=== PATIENT | male | born 1995 | race Caucasian/White ===

== ENCOUNTER 2018-05-24 18:24 | Emergency (ER) | payer BC, OTHER ==
[2018-05-24 18:31] VITALS: PULSE 79; TEMP 98.3; BMI 28.6
[2018-05-24] MEDS ORDERED: IBUPROFEN 400 MG TABLET (FP) PO ONE ×2 (18:55→19:00)
--- NOTE | 2018-05-24 19:09 | PDOC ---
History of Present Illness - General Chief Complaint: Pain Stated Complaint: PAIN Time Seen by Provider: 05/24/18 18:48 History Source: Patient Exam Limitations: No Limitations - History of Present Illness Initial Comments: 05/24/18 19:04 23 yr male no PMHX presents with 4 days pain to under left breast radiates too his left side neck and shoulder worse with movement and when lying on his side at night. 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 Pt denies injury no smoking no drugs , no recent travel. Pt denies any over the counter or prescription meds. Pt uses gym often lifts weights. 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 Timing/Duration: other (4 days) Severity: mild Associated Symptoms: denies: cough, diaphoresis, fever/chills, headaches, nausea /vomiting, shortness of breath Past History - Past Medical History Allergies/Adverse Reactions: Allergies Allergy/AdvReac Type Severity Reaction Status Date / Time No Known Drug Allergies Allergy Verified 05/24/18 18:31 Home Medications: Ambulatory Orders Cyclobenzaprine HCl [Flexeril -] 10 mg PO TID #21 tablet 05/24/18 Ibuprofen 800 mg PO TID #20 tablet 05/24/18 Anemia: No Asthma: No Cancer: No Cardiac Disorders: No CVA: No COPD: No CHF: No Dementia: No Diabetes: No GI Disorders: No Disorders: No HTN: No Hypercholesterolemia: No Liver Disease: No Seizures: No Thyroid Disease: No - Surgical History Appendectomy: Yes - Family Disease History Comment:: 05/24/18 19:06 denies any sudden cardiac in young family members - Suicide/Smoking/Psychosocial Hx Smoking History: Never smoked Hx Alcohol Use: No Drug/Substance Use Hx: No Substance Use Type: None Review of Systems - Review of Systems Able to Perform ROS?: Yes Is the patient limited Belarusian proficient: No Constitutional: No: Symptoms Reported HEENTM: No: Symptoms Reported Respiratory: No: Symptoms reported Cardiac (ROS): Yes: Symptoms Reported, See HPI *Physical Exam - Vital Signs Last Vital Signs Temp Pulse Resp BP Pulse Ox 98.3 F 79 18 141/52 98 05/24/18 18:27 05/24/18 18:27 05/24/18 18:27 05/24/18 18:27 09/09/18 18:27 - Physical Exam General Appearance: Yes: Nourished, Appropriately Dressed HEENT: positive: EOMI, ESTHER, TMs Normal, Pharynx Normal Neck: positive: Supple, Tender lateral (left lateral neck muscle ttp ). negative: Lymphadenopathy (R), Lymphadenopathy (L), Rigidity, Tender midline Respiratory/Chest: positive: Chest Tender (ttp under left breast , no rashes ), Lungs Clear, Normal Breath Sounds Cardiovascular: positive: Regular Rhythm, Regular Rate Gastrointestinal/Abdominal: positive: Normal Bowel Sounds, Soft Lymphatic: negative: Adenopathy Musculoskeletal: positive: Normal Inspection Extremity: positive: Normal Capillary Refill, Normal Inspection, Normal Range of Motion Integumentary: positive: Normal Color, Dry, Warm Neurologic: positive: Fully Oriented, Alert, Normal Mood/Affect, Normal Response , Motor Strength 5/5 Heart Score/ECG Review - History History: Slightly suspicious - Age Age: </= 45 - Risk Factors Risk Factors Heart Score: No Hx Hypercholesterolemia, No Hx Hypertension, No Hx Diabetes, No Smoking History, No Positive family hx of cardiac disease, No Hx Obesity - ECG Intrepretation Rhythm: Regular Rhythm - [place]: Normal - ECG Impressions Normal ECG: Yes ED Treatment Course - RADIOLOGY Radiology Studies Ordered: Category Date Time Status CHEST PA & LAT [RAD] Stat Radiology 05/24/18 18:55 Ordered - Medications Given in the ED: ED Medications Discontinued Medications Generic Name Dose Route Start Last Admin Trade Name Freq PRN Reason Stop Dose Admin Ibuprofen 800 mg 05/24/18 18:55 05/24/18 19:00 Motrin - PO 05/24/18 18:56 800 mg ONCE ONE Administration Medical Decision Making - Medical Decision Making 05/24/18 19:07 cc: left sided chest pain 4 days under left breast worse with movement and to touch, worse with sleeping and pain radiates to the elft side of neck and shoulder, pain with sleeping on left arm denies injury vitals stable no cardiac risk factors, no recent illness, no surgery pain is constant worse with pushing the carts at work, reproducable with touch afebrile stable vitals EKG done in triage NSR no T wave abnormality will give ibuprofen 800mg pt refused toradol CXR preliminary is negative will dc home strict follow up tomorrow with PMD 05/24/18 19:19 05/24/18 19:31 *DC/Admit/Observation/Transfer Diagnosis at time of Disposition: Musculoskeletal chest pain - Discharge Dispostion Disposition: HOME Condition at time of disposition: Good - Prescriptions Prescriptions: Cyclobenzaprine HCl [Flexeril -] 10 mg PO TID #21 tablet Ibuprofen 800 mg PO TID #20 tablet - Referrals Referrals: Orlando Ovalles MD [Primary Care Provider] - - Patient Instructions Additional Instructions: avoid heavy lifting until your symptoms improve take ibuprofen 800mg every 8hrs for pain take flexeril for any muscle spasm (Do not drink alcohol, drive or operate machinery) apply warm compresses to the area of pain on the neck every 2hrs for 20 minutes please follow with your primary care doctor tomorrow for follow up the preliminary reading on the chest xray is negative Return to ER for any worsening symptoms - Post Discharge Activity Forms/Work/School Notes: Back to Work Progress Note - Progress Note Progress Note: called patient today for follow up courtesy call. Pt is feeling better has no symptoms, states feels better after taking muscle relaxant. Pt has apt today with his PMD .
[2018-05-24 19:44] VITALS: BP 132/67
--- NOTE | 2018-05-25 10:26 | EKG ---
Test Reason : Blood Pressure : / mmHG Vent. Rate : 069 BPM Atrial Rate : 069 BPM P-R Int : 154 ms QRS Dur : 100 ms QT Int : 412 ms P-R-T Axes : 055 057 029 degrees QTc Int : 441 ms NORMAL SINUS RHYTHM NORMAL ECG NO PREVIOUS ECGS AVAILABLE Confirmed by LISA DAVID MD ([id number]) on 05/25/2018 10:26:16 AM Referred By: Confirmed By:LISA DAVID MD
== END 2018-05-24 20:21 | disposition home or self-care (01) ==
LOC: JER 18:24 → JERFT 18:24
DX: R07.89 Other chest pain (principal); X50.0XXA Overexertion from strenuous movement or load, initial encounter; Y93.89 Activity, other specified; Y92.59 Other trade areas as the place of occurrence of the external cause; Y99.0 Civilian activity done for income or pay
CPT/HCPCS: 71046-TC-FY; 93005; 93010; 99281-25

== ENCOUNTER 2019-09-08 13:22 | Emergency (ER) | payer BC ==
--- NOTE | 2019-09-08 13:35 | PDOC ---
History of Present Illness - General Chief Complaint: Headache Stated Complaint: HEADACHE Time Seen by Provider: 09/08/19 13:35 History Source: Patient Exam Limitations: No Limitations - History of Present Illness Initial Comments: 09/08/19 13:57 24y previously healthy M presenting w posterior headache and L leg parasthesias. 1 week ago woke up with constant posterior headache, L leg parasthesias, weakness, mild L leg ataxia. 2d ago went to Dr Orlando Ovalles's office, negative blood workup, referred to ED to get a brain/c-spine MRI to r/o disc herniation. Tried flexeril, ibuprofen, gabapentin without relief. Denies fever, vision change, SOB, chest/AB pain, urinary/bowel mvmt changes. Sometimes lifts heavy objects working at [employer]. Denies trauma. Past History - Past Medical History Allergies/Adverse Reactions: Allergies Allergy/AdvReac Type Severity Reaction Status Date / Time No Known Drug Allergies Allergy Verified 09/08/19 13:26 Home Medications: Ambulatory Orders Cyclobenzaprine HCl [Flexeril -] 10 mg PO TID #21 tablet 05/24/18 Ibuprofen 800 mg PO TID #20 tablet 05/24/18 Gabapentin 100 mg PO DAILY #10 capsule 09/08/19 Anemia: No Asthma: No Cancer: No Cardiac Disorders: No CVA: No COPD: No CHF: No Dementia: No Diabetes: No GI Disorders: No Disorders: No HTN: No Hypercholesterolemia: No Liver Disease: No Seizures: No Thyroid Disease: No - Surgical History Appendectomy: Yes - Psycho Social/Smoking Cessation Hx Smoking History: Never smoked Hx Alcohol Use: No Drug/Substance Use Hx: No Substance Use Type: None Review of Systems - Review of Systems Constitutional: No: Chills, Fever HEENTM: No: Eye Pain, Nose Pain, Throat Pain Respiratory: No: Cough, Shortness of Breath Cardiac (ROS): No: Chest Pain, Palpitations, Syncope ABD/GI: No: Abdominal Distended, Constipated, Diarrhea, Nausea, Vomiting : No: Burning, Dysuria, Discharge, Flank Pain, Hematuria Musculoskeletal: No: Back Pain, Joint Pain Integumentary: No: Bruising, Flushing, Lesions Neurological: Yes: Headache, Paresthesia. No: Seizure, Tingling Psychiatric: No: Anxiety, Depression, Stressors Endocrine: No: Excessive Sweating, Flushing, Intolerance to Cold, Intolerance to Heat Hematologic/Lymphatic: No: Anemia, Blood Clots *Physical Exam - Physical Exam General Appearance: Yes: Nourished, Appropriately Dressed. No: Apparent Distress HEENT: positive: EOMI, ESTHER, Normal Voice, Hearing Grossly Normal. negative: Scleral Icterus (R), Scleral Icterus (L), Nasal Congestion, Rhinorrhea Neck: positive: Supple. negative: Tender, Rigid, Decreased range of motion ( full) Respiratory/Chest: positive: Lungs Clear, Normal Breath Sounds. negative: Chest Tender, Respiratory Distress, Crackles, Rales, Rhonchi, Stridor, Wheezing Cardiovascular: positive: Regular Rhythm, Regular Rate, S1, S2. negative: Edema , Murmur Musculoskeletal: positive: Normal Inspection. negative: CVA Tenderness (R), CVA Tenderness (L), Vertebral Tenderness Integumentary: positive: Normal Color. 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 Slight L leg limp when walking. No balance deficits). negative: Confused, Disoriented ED Treatment Course - LABORATORY CBC & Chemistry Diagram: 09/08/19 14:12 09/08/19 14:12 Medical Decision Making - Medical Decision Making 09/08/19 13:57 24y previously healthy M presenting w posterior headache and L leg parasthesias d/t C5 radiculopathy diagnosed by Dr Serrano neuro. Low concern for cauda equina (retained bowel/bladder function) vs disc herniation (neg straight leg raise) Neuro exam significant for L leg paraesthesias and mild L leg ataxia. CBC CMP normal. Head CT no acute infarct/bleed/mass. Given tylenol, reglan, 1L NS. Dr Serrano consulted, advised will see pt in clinic tmrw for MRI c-spine, gabapentin daily. DC home Discharge - Discharge Information Problems reviewed: Yes Clinical Impression/Diagnosis: Cervical radiculopathy at C5 Condition: Good Disposition: HOME - Admission No - Additional Discharge Information Prescriptions: Gabapentin 100 mg PO DAILY #10 capsule - Follow up/Referral Referrals: Orlando Ovalles MD [Primary Care Provider] - Radha Serrano MD [Staff Physician] - - Patient Discharge Instructions Patient Printed Discharge Instructions: DI for Cervical Radiculopathy Additional Instructions: You were seen for headache and leg discomfort. Your workup did not show anything concerning. You were given pain medication. Please see the neurologist Dr Serrano in clinic tomorrow. Take the prescribed Gabapentin at night as directed. Come back if you cannot urinate or pass bowel movement, walk, - Post Discharge Activity
[2019-09-08 13:51] VITALS: TEMP 98.2; BMI 25.7
[2019-09-08] MEDS: ACETAMINOPHEN 1000 MG/100 ML VIAL (NON FORMULARY) IVPB ONE ×2 (13:54→14:12)
[2019-09-08] MEDS: GABAPENTIN 100 MG CAPSULE (FP) PO ONE ×2 (13:54→14:13)
[2019-09-08] MEDS ORDERED: SODIUM CHLORIDE 0.9% 500 ML INFUS.BAG IV ONE (13:55)
[2019-09-08] MEDS ORDERED: ACETAMINOPHEN 500 MG TABLET (FP) PO ONE (13:55)
[2019-09-08] MEDS ORDERED: METOCLOPRAMIDE HCL INJECTION 10 MG/2 ML VIAL IVPB ONE (13:55)
[2019-09-08] MEDS ORDERED: ACETAMINOPHEN 1000 MG/100 ML VIAL (NON FORMULARY) IVPB ONE (13:56)
[2019-09-08] MEDS ORDERED: ACETAMINOPHEN INJECTION 100 ML IVPB ONE (14:00)
[2019-09-08 14:20] LABS: BASO % 1.2 % (0-2.0); EOS % 4.4 % (0-4.5); HEMATOCRIT 44.5 % (35.4-49); MCH 28.5 pg (25.7-33.7); MCHC 33.7 g/dl (32.0-35.9); MEAN CELL VOLUME 84.7 fl (80-96); MEAN PLT VOLUME 7.4 fl (7.5-11.1); MONO % 5.3 % (3.8-10.2); NEUT % 53.1 % (42.8-82.8); PLATELET COUNT 213 K/MM3 (134-434); RBC 5.25 M/mm3 (4.00-5.60); RDW 14.1 % (11.9-15.9); WHITE BLOOD COUNT 4.9 K/mm3 (4.0-10.0)
[2019-09-08 14:41] LABS: INR 1.05 (0.83-1.09); PROTHROMBIN TIME (PATIENT) 12.4 SEC (9.7-13.0)
[2019-09-08 14:42] LABS: ALBUMIN 4.2 g/dl (3.4-5.0); BILIRUBIN,TOTAL 0.5 mg/dL (0.2-1); BLOOD UREA NITROGEN 13.8 mg/dL (7-18); CALCIUM 9.2 mg/dL (8.5-10.1); POTASSIUM 3.9 mmol/L (3.5-5.1); TOT PROT 7.3 g/dl (6.4-8.2)
--- NOTE | 2019-09-08 14:46 | PDOC ---
Documentation entered by Kirti Jama SCRIBE, acting as scribe for Kevin Chavez MD. Kevin Chavez MD: This documentation has been prepared by the porscheibeWiley Maria, SCRIBE, under my direction and personally reviewed by me in its entirety. I confirm that the documentation accurately reflects all work, treatment, procedures, and medical decision making performed by me. Attending Attestation - Resident Resident Name: Kev Cuadra - ED Attending Attestation I have performed the following: I have examined & evaluated the patient, The case was reviewed & discussed with the resident, I agree w/resident's findings & plan, Exceptions are as noted - HPI HPI: 09/08/19 14:14 Patient is a 24 year old male with no significant PMH who presents to the ED with a posterior headache and L leg paresthesias. Pt states his headache started about a week ago. He reports mild R sided posterior pain that is constant. Denies neck pain. Pt denies N/V. States that he takes motrin for his headache, which helps temporarily. Pt denies thunderclap, denies worse headache of life. Pt also reports L leg numbness that started after the headache. He states that he feels like his left leg is asleep. The numbness radiates from his L foot all the way up his L abdomen. Pt denies any noticeable weakness but reports that he has been walking with a limp and finds himself stumbling at times. He denies any recent fevers, chills, headache or dizziness. He denies any recent nausea, vomit, diarrhea or constipation. He denies any recent chest pain or shortness of breath. He denies any recent dysuria, frequency, urgency or hematuria. 09/08/19 14:46 - Physicial Exam PE: 09/08/19 13:42 "GENERAL: Awake, alert, and fully oriented, in no acute distress. HEAD: No signs of trauma EYES: PERRLA, EOMI, sclera anicteric, conjunctiva clear ENT: Auricles normal inspection, hearing grossly normal, nares patent, oropharynx clear without exudates. Moist mucosa NECK: Nontender, no stepoffs, Normal ROM, supple, no lymphadenopathy, JVD, or masses LUNGS: Breath sounds equal, clear to auscultation bilaterally. No wheezes, and no crackles HEART: Regular rate and rhythm, normal S1 and S2, no murmurs, rubs or gallops ABDOMEN: Soft, nontender, normoactive bowel sounds. No guarding, no rebound. No masses EXTREMITIES: Normal range of motion, no edema. No clubbing or cyanosis. No cords, erythema, or tenderness NEUROLOGICAL: + diminished sensation throughout LLE and L abdomen, Cranial nerves II through XII intact. 5/5 strength all extremities, Normal speech, normal cerebellar function SKIN: Warm, Dry, normal turgor, no rashes or lesions noted. - Medical Decision Making 09/08/19 14:50 24 M with posterior headache and LLE numbness, with abnormal gait on exam. - Labs - CT head - Neuro c/s 09/08/19 16:16 Labs wnl CTH unremarkable Pt evaluated by Dr. Serrano, who believes this is a C5 radiculopathy. Plan to obtain MRI as outpt, he will see pt in his office tomorrow. Pt is well appearing, with normal vitals. Clinically stable for DC at this time. I discussed the physical exam findings, ancillary test results and final diagnoses with the patient. I answered all of the patient's questions. The patient was satisfied with the care received and felt comfortable with the discharge plan and treatment plan. The patient agrees to follow up with the primary care physician within 24-72 hours.
[2019-09-08 16:54] VITALS: BP 120/87; PULSE 80
--- NOTE | 2019-09-08 17:22 | CON.NEURO ---
Consult Consult Specialty:: Maggie Referred by:: ER - History of Present Illness History of Present Illness: 24-year-old right-handed man with essentially normal medical history presents to thehospital emergency room at [facility] with chief complaint of headache throbbing pain and neck pain and difficulty with equilibrium. Patient denies any recent travel no history of head trauma no history of weight loss or weight gain or difficulty swallowing in the emergency room patient was stepwise was hemodynamically stable patient was noted with questionable decreased sensation on sensory exam with the left arm and left leg. 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 - History Source History Provided By: Patient Limitations to Obtaining History: No Limitations - Alcohol/Substance Use Hx Alcohol Use: No - Smoking History Smoking history: Never smoked Have you smoked in the past 12 months: No Home Medications - Allergies Allergies/Adverse Reactions: Allergies Allergy/AdvReac Type Severity Reaction Status Date / Time No Known Drug Allergies Allergy Verified 09/08/19 13:26 - Home Medications Home Medications: Ambulatory Orders Cyclobenzaprine HCl [Flexeril -] 10 mg PO TID #21 tablet 05/24/18 Ibuprofen 800 mg PO TID #20 tablet 05/24/18 Gabapentin 100 mg PO DAILY #10 capsule 09/08/19 Family Medical History Family History: Unremarkable Review of Systems - Review of Systems Constitutional: reports: No Symptoms Eyes: reports: No Symptoms HENT: reports: No Symptoms Physical Exam-Neuro Vital Signs: Vital Signs Temperature 98.2 F 09/08/19 13:39 Pulse Rate 80 09/08/19 16:25 Respiratory Rate 14 09/08/19 16:25 Blood Pressure 120/87 09/08/19 16:25 O2 Sat by Pulse Oximetry (%) 98 09/08/19 13:39 Constitutional: Yes: Well Nourished Neck: Yes: WNL Cardiovascular: Yes: WNL Labs: CBC, BMP 09/08/19 14:12 09/08/19 14:12 INR, PTT INR 1.05 (0.83-1.09) 09/08/19 14:12 - Neuro Exam Level Of Consciousness: Yes: Oriented to Person, Oriented to Place, Oriented to Time Eyes: Yes: PERRLA Speech: WNL Dominant Hand: Right Cranial Nerves II-XII Intact: Yes Gag: Present DTR's: 1+ Left Bicep, 1+ Right Bicep, 1+ Left Brachioradialis, 1+ Right Brachioradialis Response to light touch: Normal Response to pain prick: Normal Response to temperature: Normal Response to vibration: Normal Motor Strength: 3/5: Left Arm, Right Arm, Left Leg, Right Leg Gait: Deferred Imaging - Results Cat Scan: Image Reviewed Problem List - Problems (1) Cervical radiculopathy at C5 Assessment/Plan: o evidence of myelopathy no evidence of demyelinating disease no evidence of vertebral dissection 1. Neurologically can go home. 2. Neurontin 100 mg by mouth daily at bedtime. 3. MRI of the cervical spine as an outpatient. Code(s): M54.12 - RADICULOPATHY, CERVICAL REGION
--- NOTE | 2019-09-09 05:06 | EKG ---
Test Reason : Blood Pressure : / mmHG Vent. Rate : 071 BPM Atrial Rate : 071 BPM P-R Int : 156 ms QRS Dur : 094 ms QT Int : 386 ms P-R-T Axes : 057 052 034 degrees QTc Int : 419 ms POOR DATA QUALITY, INTERPRETATION MAY BE ADVERSELY AFFECTED NORMAL SINUS RHYTHM NORMAL ECG WHEN COMPARED WITH ECG OF 24-MAY-2018 18:51, NO SIGNIFICANT CHANGE WAS FOUND Confirmed by YURIY MATHIS, JUVE ([id number]) on 09/09/2019 5:06:30 AM Referred By: Confirmed By:JUVE YAN MD
[2019-09-09] MEDS ORDERED: CYCLOBENZAPRINE HCL 5 MG TABLET PO ONE (13:49)
== END 2019-09-08 16:30 | disposition home or self-care (01) ==
LOC: JER 13:22
PROC: 3E033NZ Introduction of Analgesics, Hypnotics, Sedatives into Peripheral Vein, Percutaneous Approach (ICD-10-PCS; principal; 2019-09-08)
PROC: 3E033GC Introduction of Other Therapeutic Substance into Peripheral Vein, Percutaneous Approach (ICD-10-PCS; 2019-09-08)
DX: M54.12 Radiculopathy, cervical region (principal)
CPT/HCPCS: 36415; 70450-TC; 80053; 85025; 85610; 86850; 86900; 86901; 93005; 93010; 99282-25; J0131

== ENCOUNTER 2019-09-21 12:55 | Inpatient (IN) | payer OTHER, BC ==
[2019-09-21 13:04] VITALS: BMI 30.2
[2019-09-21] MEDS ORDERED: DEXAMETHASONE SOD PHOSPHATE 10 MG/1 ML VIAL IVPUSH ONE (13:16)
[2019-09-21] MEDS ORDERED: DEXAMETHASONE SOD PHOSPHATE 10 MG/1 ML VIAL ONE (13:43)
[2019-09-21] MEDS ORDERED: oxyCODONE HCL 5 MG TABLET PO PRN (13:53)
[2019-09-21] MEDS ORDERED: MORPHINE SULFATE 2 MG/ML VIAL IVPUSH PRN (13:53)
[2019-09-21] MEDS ORDERED: ACETAMINOPHEN 325 MG TABLET (FP) PO PRN ×2 (13:53→19:30)
[2019-09-21 14:18] LABS: BASO % 0.7 % (0-2.0); EOS % 3.6 % (0-4.5); HEMATOCRIT 43.2 % (35.4-49); HEMOGLOBIN 14.6 GM/dL (11.7-16.9); LYMPH % 32.8 % (8-40); MCH 28.3 pg (25.7-33.7); MCHC 33.8 g/dl (32.0-35.9); MEAN CELL VOLUME 83.5 fl (80-96); MEAN PLT VOLUME 7.8 fl (7.5-11.1); MONO % 6.7 % (3.8-10.2); NEUT % 56.2 % (42.8-82.8); PLATELET COUNT 212 K/MM3 (134-434); RBC 5.18 M/mm3 (4.00-5.60); RDW 14.2 % (11.9-15.9); WHITE BLOOD COUNT 5.4 K/mm3 (4.0-10.0)
[2019-09-21 14:43] LABS: ALBUMIN 4.3 g/dl (3.4-5.0); BILIRUBIN,TOTAL 0.5 mg/dL (0.2-1); BLOOD UREA NITROGEN 18.3 mg/dL (7-18); CALCIUM 9.2 mg/dL (8.5-10.1); CREATININE 0.9 mg/dL (0.55-1.3); TOT PROT 7.3 g/dl (6.4-8.2)
[2019-09-21] MEDS ORDERED: PANTOPRAZOLE 40 MG TABLET ONE (14:53)
[2019-09-21] MEDS: PANTOPRAZOLE 40 MG TABLET PO SCH (14:58)
[2019-09-21 15:05] LABS: INR 1.01 (0.83-1.09); PROTHROMBIN TIME (PATIENT) 11.9 SEC (9.7-13.0)
[2019-09-21 15:07] LABS: ACTIVATED PTT 36.3 SECONDS (25.2-36.5)
[2019-09-21] MEDS: methylPREDNISolone NA SUCC 125 MG/2 ML VIAL IVPB SCH ×2 (15:30→20:54)
--- NOTE | 2019-09-21 16:22 | PDOC ---
Documentation entered by Norbert Carrera SCRIBE, acting as scribe for Dayana Fabian MD. Dayana Fabian MD: This documentation has been prepared by the Deandre boland Daniel, SCRIBE, under my direction and personally reviewed by me in its entirety. I confirm that the documentation accurately reflects all work, treatment, procedures, and medical decision making performed by me. History of Present Illness - General Chief Complaint: Headache Stated Complaint: SENT BY PCP Time Seen by Provider: 09/21/19 13:14 History Source: Patient Exam Limitations: No Limitations - History of Present Illness Initial Comments: 09/21/19 13:27 The patient is a 24 year old male with a past medical history of new diagnosed MS here today for admission for high dose steroids. The patient reports that he has had 3 weeks of posterior headaches and unilateral numbness and was seen in the ER on 09/08/19. He had an MRI which showed MS which was later confirmed when he saw Dr. Serrano and had an MRI with contrast which showed acute MS. Pt was sent to the ED by Dr. Serrano for treatment with steroids and LP later today. PT reports resolution of numbness but reports persistent headache with no change in severity, location, or quality. Pt states he has been taking ibuprofen for the pain which provides some relief. Patient denies dizziness, current focal weakness/numbness. Denies fever, chills. Denies chest pain, shortness of breath. Denies nausea, vomiting, diarrhea, abdominal pain. Allergies: NKDA PCP: Orlando Ovalles Past History - Past Medical History Allergies/Adverse Reactions: Allergies Allergy/AdvReac Type Severity Reaction Status Date / Time No Known Drug Allergies Allergy Verified 09/21/19 13:05 Home Medications: Ambulatory Orders Ibuprofen 800 mg PO TID #20 tablet 05/24/18 Anemia: No Asthma: No Cancer: No Cardiac Disorders: No CVA: No COPD: No CHF: No Dementia: No Diabetes: No GI Disorders: No Disorders: No HTN: No Hypercholesterolemia: No Liver Disease: No Seizures: No Thyroid Disease: No - Surgical History Appendectomy: Yes - Psycho Social/Smoking Cessation Hx Smoking History: Never smoked Have you smoked in the past 12 months: No Hx Alcohol Use: No Drug/Substance Use Hx: No Substance Use Type: None Review of Systems - Review of Systems Able to Perform ROS?: Yes Comments:: 09/21/19 13:27 GENERAL/CONSTITUTIONAL: No fever or chills. No weakness. HEAD, EYES, EARS, NOSE AND THROAT: No change in vision. No ear pain or discharge. No sore throat. GASTROINTESTINAL: No nausea, vomiting, diarrhea or constipation. GENITOURINARY: No dysuria, frequency, or change in urination. CARDIOVASCULAR: No chest pain or shortness of breath. RESPIRATORY: No cough, wheezing, or hemoptysis. MUSCULOSKELETAL: No joint or muscle swelling or pain. No neck or back pain. SKIN: No rash NEUROLOGIC: +headache. +left sided numbness. No vertigo, loss of consciousness, or change in strength/sensation. ENDOCRINE: No increased thirst. No abnormal weight change. HEMATOLOGIC/LYMPHATIC: No anemia, easy bleeding, or history of blood clots. ALLERGIC/IMMUNOLOGIC: No hives or skin allergy. *Physical Exam - Vital Signs Last Vital Signs Temp Pulse Resp BP Pulse Ox 97.9 F 70 18 113/74 99 09/21/19 13:00 09/21/19 13:00 09/21/19 13:00 09/21/19 13:00 09/21/19 13:00 - Physical Exam 09/21/19 13:27 GENERAL: Awake, alert, and fully oriented, in no acute distress, very pleasant EYES: PERRLA, EOMI, sclera anicteric, conjunctiva clear ENT: Oropharynx clear without exudates. Moist mucosa NECK: Normal ROM, supple, no lymphadenopathy, JVD, or masses LUNGS: Breath sounds equal, clear to auscultation bilaterally. No wheezes, and no crackles HEART: Regular rate and rhythm, normal S1 and S2, no murmurs, rubs or gallops ABDOMEN: Soft, nontender, normoactive bowel sounds. No guarding, no rebound. No masses EXTREMITIES: Normal range of motion, no edema. No clubbing or cyanosis. No cords , erythema, or tenderness BACK: No midline spinal tenderness in cervical/thoracic/lumbar region NEUROLOGICAL: Normal speech, cranial nerves intact, negative pronator drift, 5/ 5 strength in all 4 extremities, normal sensation to light touch in all 4 extremities, normal cerebellar exam, normal gait SKIN: Warm, Dry, normal turgor, no rashes or lesions noted. ED Treatment Course - LABORATORY CBC & Chemistry Diagram: 09/21/19 13:51 09/21/19 13:51 - Medications Given in the ED: ED Medications Discontinued Medications Generic Name Dose Route Start Last Admin Trade Name Yarely PRN Reason Stop Dose Admin Dexamethasone Sodium Phosphate 10 mg 09/21/19 13:16 09/21/19 13:53 Decadron Injection - IVPUSH 09/21/19 13:17 10 mg ONCE ONE Administration Medical Decision Making - Medical Decision Making 09/21/19 16:19 24-year-old male, with new diagnosis of multiple sclerosis presents to the emergency department for admission for high-dose steroids, lumbar tap with Dr. Serrano. Case discussed with Dr. Serrano, he requests admission labs including coags and type and screen. He will evaluate the patient later today. Dr. Fournier also requests Decadron 10 mg which have also been ordered and given to the patient. Plan has been discussed with patient. Case has been discussed with TASHA Garber, patient has been accepted for admission to Dr. Ovalles's service. Case discussed in detail with admitting physician including history, physical exam and ancillary studies. Admitting physician has assumed care for the patient, will follow all pending diagnostics and will complete the evaluation and treatment. Discharge - Discharge Information Problems reviewed: Yes Clinical Impression/Diagnosis: Multiple sclerosis, Headache Condition: Stable - Follow up/Referral - Patient Discharge Instructions - Post Discharge Activity
[2019-09-21 19:16] LABS: URINE APPEARANCE CLEAR; URINE BILIRUBIN NEGATIVE (NEGATIVE); URINE COLOR YELLOW; URINE GLUCOSE (UA) NEGATIVE (NEGATIVE); URINE KETONE NEGATIVE (NEGATIVE); URINE LEUK ESTERASE NEGATIVE (NEGATIVE); URINE NITRITE NEGATIVE (NEGATIVE); URINE PROTEIN NEGATIVE (NEGATIVE); URINE UROBILINOGEN 0.2 mg/dL (0.2-1.0)
--- NOTE | 2019-09-21 19:31 | PROC ---
Lumbar Puncture Indication: MS Risks and Benefits Explained: Yes Consent on Chart: Yes Sterile Technique: Yes Skin prep: Betadine Position: Sitting Site: L5-S1 Local Anesthesia: 1% Lidocaine with epi CSF Color, Appearance: Clear Sterile Dressing Applied: Yes
--- NOTE | 2019-09-21 19:33 | CON.NEURO ---
Consult Consult Specialty:: Maggie Referred by:: Josr - History of Present Illness History of Present Illness: 24 man with recent diagnisis with MS On Steriods No family history No recent travel Was bit tat age [age] with ?? Lyme - History Source History Provided By: Patient Limitations to Obtaining History: No Limitations - Alcohol/Substance Use Hx Alcohol Use: No - Smoking History Smoking history: Never smoked Have you smoked in the past 12 months: No Home Medications - Allergies Allergies/Adverse Reactions: Allergies Allergy/AdvReac Type Severity Reaction Status Date / Time No Known Drug Allergies Allergy Verified 09/21/19 13:05 - Home Medications Home Medications: Ambulatory Orders Ibuprofen 800 mg PO TID #20 tablet 05/24/18 Family Medical History Family History: Unremarkable Review of Systems - Review of Systems Constitutional: reports: No Symptoms Eyes: reports: No Symptoms HENT: reports: No Symptoms Physical Exam-Neuro Vital Signs: Vital Signs Temperature 98.2 F 09/21/19 16:00 Pulse Rate 87 09/21/19 16:00 Respiratory Rate 18 09/21/19 16:00 Blood Pressure 120/72 09/21/19 16:00 O2 Sat by Pulse Oximetry (%) 99 09/21/19 16:00 Constitutional: Yes: Well Nourished Neck: Yes: WNL Cardiovascular: Yes: WNL Labs: CBC, BMP 09/21/19 13:51 09/21/19 13:51 INR, PTT INR 1.01 (0.83-1.09) 09/21/19 13:51 - Neuro Exam Level Of Consciousness: Yes: Oriented to Person, Oriented to Place, Oriented to Time Eyes: Yes: PERRLA Speech: WNL Dominant Hand: Right Cranial Nerves II-XII Intact: Yes Gag: Present DTR's: 1+ Left Bicep, 1+ Right Bicep, 1+ Left Tricep, 1+ Right Tricep Response to light touch: Normal Response to pain prick: Normal Response to temperature: Normal Response to vibration: Normal Motor Strength: 3/5: Left Arm, Right Arm, Left Leg, Right Leg Gait: Deferred Imaging - Results MRI: Image Reviewed Problem List - Problems (1) Multiple sclerosis Assessment/Plan: LP Steriods BGM PT Bed rest PT Code(s): G35 - MULTIPLE SCLEROSIS
[2019-09-22 01:52] LABS: BF GLUCOSE (CSF ONLY) 63 mg/dL (40-70)
[2019-09-22] MEDS: methylPREDNISolone NA SUCC 125 MG/2 ML VIAL IVPB SCH ×4 (02:23→21:00)
[2019-09-22 03:45] LABS: CSF APPEARANCE CLEAR; CSF COLOR COLORLESS; CSF WBC 0
[2019-09-22] MEDS: PANTOPRAZOLE 40 MG TABLET PO SCH (09:17)
--- NOTE | 2019-09-22 10:50 | HP ---
Admitting History and Physical - Primary Care Physician PCP: Orlando Ovalles - Admission Chief Complaint: Headache. New diagnosis of MS History of Present Illness: The patient is a 24 year old male with a past medical history of new diagnosed MS here today for admission for high dose steroids. The patient reports that he has had 3 weeks of posterior headaches and unilateral numbness and was seen in the ER on 09/08/19. He had an MRI which showed MS which was later confirmed when he saw Dr. Serrano and had an MRI with contrast which showed acute MS. Pt was sent to the ED by Dr. Serrano for treatment with steroids and LP later today. PT reports resolution of numbness but reports persistent headache with no change in severity, location, or quality. Pt states he has been taking ibuprofen for the pain which provides some relief. Patient denies dizziness, current focal weakness/numbness. Denies fever, chills. Denies chest pain, shortness of breath. Denies nausea, vomiting, diarrhea, abdominal pain. History Source: Patient Limitations to Obtaining History: No Limitations - Smoking History Smoking history: Never smoked Have you smoked in the past 12 months: No - Alcohol/Substance Use Hx Alcohol Use: No Home Medications - Allergies Allergies/Adverse Reactions: Allergies Allergy/AdvReac Type Severity Reaction Status Date / Time No Known Drug Allergies Allergy Verified 09/21/19 13:05 - Home Medications Home Medications: Ambulatory Orders Ibuprofen 800 mg PO TID #20 tablet 05/24/18 Physical Examination Vital Signs: Vital Signs Temperature 97.8 F 09/22/19 08:34 Pulse Rate 80 09/22/19 08:34 Respiratory Rate 18 09/22/19 08:34 Blood Pressure 134/72 09/22/19 08:34 O2 Sat by Pulse Oximetry (%) 99 09/21/19 21:00 Labs: CBC, BMP 09/21/19 13:51 09/21/19 13:51 Problem List - Problems (1) Headache Assessment/Plan: -Seen by Neurology -Lumbar puncture done -pain management -IV medrol 250 mg Q6h Problems reviewed: Yes Code(s): R51 - HEADACHE (2) Multiple sclerosis Assessment/Plan: -Seen by Neurology -Lumbar puncture done -pain management -IV medrol 250 mg Q6h -Lyme titers pending Problems reviewed: Yes Code(s): G35 - MULTIPLE SCLEROSIS Assessment/Plan see problem list
[2019-09-22] MEDS ORDERED: MELATONIN 5 MG TABLETS PO PRN (21:05)
--- NOTE | 2019-09-22 22:33 | PN ---
Progress Note, Physician History of Present Illness: events noted Chart reviwed Alert awake Feels better mild hedacahe CSf note d MRI noted On steriods - Current Medication List Current Medications: Active Medications Acetaminophen (Tylenol -) 650 mg PO Q4H PRN PRN Reason: PAIN LEVEL 1 - 3 Acetaminophen (Tylenol -) 650 mg PO Q6H PRN PRN Reason: HEADACHE Melatonin (Melatonin) 5 mg PO HS PRN PRN Reason: INSOMNIA Last Admin: 09/22/19 21:52 Dose: 5 mg Methylprednisolone Sodium Succinate (Solu-Medrol -) 250 mg IVPB Q6H-IV SUGAR Last Admin: 09/22/19 21:00 Dose: 250 mg Morphine Sulfate (Morphine Sulfate) 1 mg IVPUSH Q4H PRN PRN Reason: PAIN LEVEL 7 - 10 Oxycodone HCl (Roxicodone -) 5 mg PO Q4H PRN PRN Reason: PAIN LEVEL 4 - 6 Pantoprazole Sodium (Protonix -) 40 mg PO DAILY SUGAR Last Admin: 09/22/19 09:17 Dose: 40 mg - Objective Vital Signs: Vital Signs Temperature 97.7 F 09/22/19 14:39 Pulse Rate 79 09/22/19 14:39 Respiratory Rate 18 09/22/19 21:00 Blood Pressure 138/70 09/22/19 14:39 O2 Sat by Pulse Oximetry (%) 99 09/22/19 21:00 Constitutional: Yes: Well Nourished Eyes: Yes: WNL Neurological: Yes: Alert, Oriented, Aphasia, Babinski negative ...Motor Strength: WNL Labs: CBC, BMP 09/21/19 13:51 09/21/19 13:51 INR, PTT INR 1.01 (0.83-1.09) 09/21/19 13:51 Problem List - Problems (1) Multiple sclerosis Assessment/Plan: 1. Steriods taper predniosone 40 mg for three days 20 mg for one week and then stop 3. Will discuss further treatment as outopatient can go home 09/23/2019 Code(s): G35 - MULTIPLE SCLEROSIS
[2019-09-23] MEDS: methylPREDNISolone NA SUCC 125 MG/2 ML VIAL IVPB SCH ×2 (02:31→09:38)
[2019-09-23] MEDS: PANTOPRAZOLE 40 MG TABLET PO SCH (09:38)
[2019-09-23 11:16] VITALS: BP 124/53; PULSE 89; TEMP 97.9
--- NOTE | 2019-09-23 11:18 | PN ---
Progress Note, Physician Chief Complaint: Intractable headaches MS exacerbation History of Present Illness: NAD denies any headaches self ambulatory wants to go home - Current Medication List Current Medications: Active Medications Acetaminophen (Tylenol -) 650 mg PO Q4H PRN PRN Reason: PAIN LEVEL 1 - 3 Acetaminophen (Tylenol -) 650 mg PO Q6H PRN PRN Reason: HEADACHE Melatonin (Melatonin) 5 mg PO HS PRN PRN Reason: INSOMNIA Last Admin: 09/22/19 21:52 Dose: 5 mg Methylprednisolone Sodium Succinate (Solu-Medrol -) 250 mg IVPB Q6H-IV SUGAR Last Admin: 09/23/19 09:38 Dose: 250 mg Morphine Sulfate (Morphine Sulfate) 1 mg IVPUSH Q4H PRN PRN Reason: PAIN LEVEL 7 - 10 Oxycodone HCl (Roxicodone -) 5 mg PO Q4H PRN PRN Reason: PAIN LEVEL 4 - 6 Pantoprazole Sodium (Protonix -) 40 mg PO DAILY SUGAR Last Admin: 09/23/19 09:38 Dose: 40 mg - Objective Vital Signs: Vital Signs Temperature 97.9 F 09/23/19 09:00 Pulse Rate 89 09/23/19 09:00 Respiratory Rate 18 09/23/19 09:00 Blood Pressure 124/53 L 09/23/19 09:00 O2 Sat by Pulse Oximetry (%) 99 09/22/19 21:00 Constitutional: Yes: Well Nourished, No Distress, Calm Cardiovascular: Yes: Regular Rate and Rhythm Respiratory: Yes: Regular Gastrointestinal: Yes: Normal Bowel Sounds, Soft Genitourinary: Yes: WNL Musculoskeletal: Yes: WNL Extremities: Yes: WNL Edema: No Peripheral Pulses WNL: Yes Neurological: Yes: Alert, Oriented Psychiatric: Yes: Alert, Oriented Labs: CBC, BMP 09/21/19 13:51 09/21/19 13:51 INR, PTT INR 1.01 (0.83-1.09) 09/21/19 13:51 Problem List - Problems (1) Headache Assessment/Plan: -Seen by Neurology -Lumbar puncture done -pain management -Prednisone 40 mg po daily x 3 days, then 20 mg po daily x 1 week, then stop -PPI for GI prophylaxis Problems reviewed: Yes Code(s): R51 - HEADACHE (2) Multiple sclerosis Assessment/Plan: -Seen by Neurology -Lumbar puncture done -pain management -Prednisone 40 mg po daily x 3 days, then 20 mg po daily x 1 week, then stop -Lyme titers pending Problems reviewed: Yes Code(s): G35 - MULTIPLE SCLEROSIS Assessment/Plan see problem list
[2019-09-24 13:07] LABS: ALBUMIN SERUM 4.8 g/dL (3.5-5.5); CSF IGG INDEX 0.5 (0.0-0.7); IGG/ALB RATIO CSF 0.11 (0.00-0.25)
[2019-09-27 16:07] LABS: ALBUMIN SERUM 5.1 g/dL (3.5-5.5); CSF IGG INDEX 0.7 (0.0-0.7); IGG QN CSF 2.2 mg/dL (0.0-8.6); IGG/ALB RATIO CSF 0.12 (0.00-0.25)
[2019-09-28 15:07] LABS: ALPHA-1-GLOBULIN,CSF 4.5 % (1.1-6.6); ALPHA-2-GLOBULIN,CSF 4.4 % (3.0-12.6); BETA GLOBULIN,CSF 16.3 % (7.3-17.9); GAMMA GLOBULIN,CSF 7.3 % (3.0-13.0); M-SPIKE CSF Not Observed % (Not Observed); PRE-ALBUMIN CSF 3.9 % (2.2-7.1)
[2019-09-28 17:07] LABS: MUMPS AB IGG CSF < 5.0 AU/mL (<=10.9)
[2019-09-29 00:07] LABS: LYME PCR CSF Negative (Negative)
[2019-09-29 16:08] LABS: MYELIN BASIC PROTEIN,CSF 6.8 ng/mL (0.0-3.8)
[2019-10-01 16:07] LABS: HERPES SIMPLEX TYPE 1 IGM 1.04 IV (<=0.89)
== END 2019-09-23 12:56 | disposition home or self-care (01) | DRG 60 ==
LOC: JER 12:55 → JERBED 13:17 → J6S 15:46
PROVIDERS: ADMIT Family Medicine; ATTEND Family Medicine
PROC: 009U3ZX Drainage of Spinal Canal, Percutaneous Approach, Diagnostic (ICD-10-PCS; principal; 2019-09-21)
DX: G35 Multiple sclerosis (principal); R51 Headache
CPT/HCPCS: 36415; 70553-TC; 72156-TC; 80053; 81003; 82784; 82787; 82945; 82962; 83605; 83735; 83873; 83916; 84157; 84166; 85025; 85610; 85730; 86592; 86617; 86694; 86735; 86765; 86787; 86788; 86789; 86850; 86900; 86901; 87070; 87086; 87205; 87476; 97116-GP; 97161-GP; 99283-25; J1100